=== PATIENT | male | born 1985 | race Caucasian/White ===

== ENCOUNTER 2017-02-05 22:33 | Emergency (ER) | payer BC ==
[2017-02-06] MEDS ORDERED: LIDOCAINE 1% 10 ML VIAL INJ ONE (00:32)
--- NOTE | 2017-02-06 00:36 | ED.PDOC ---
History of Present Illness - General Chief Complaint: Laceration Stated Complaint: eye laceration Time Seen by Provider: 02/06/17 00:30 Source: patient Exam Limitations: no limitations - History of Present Illness Initial Comments: Monty Singh 31 y/o male stated got accidentally struck by the metal [employer]ndricks at the [facility] [employer] tonight sustaining laceration just above the right eye brow denies being struck on the eyeball.No blurry vision,no loc Timing/Duration: just prior to arrival Severity: mild Location: face Worsening Factors: nothing Associated Symptoms: denies symptoms Allergies/Adverse Reactions: Allergies NO KNOWN ALLERGY Allergy (Verified 07/15/13 12:58) Home Medications: Ambulatory Orders Tramadol HCl 50 mg PO Q6HRS #20 tab 10/29/14 Review of Systems - Review of Systems Constitutional: States: no symptoms reported EENTM: States: no symptoms reported Respiratory: States: no symptoms reported Cardiology: States: no symptoms reported Gastrointestinal/Abdominal: States: no symptoms reported Genitourinary: States: no symptoms reported Musculoskeletal: States: no symptoms reported Skin: States: see HPI Past Medical History (General) - Patient Medical History Hx Asthma: No Hx of COPD: No Hx Congestive Heart Failure: No Hx Pacemaker: No Hx Hypertension: No Surgical History: other - Vaccination History Hx Tetanus, Diphtheria Vaccination: No Hx Influenza Vaccination: No Hx Pneumococcal Vaccination: No - Social History Hx Tobacco Use: Yes Hx Alcohol Use: Yes Hx Substance Use: No Hx Substance Use Treatment: No Hx Depression: No - Female History Patient : No Family Medical History - Family History Mother Family History: No Known Living Status: Still Living Physical Exam - Physical Exam General Appearance: Alert, Comfortable, No apparent distress Eyes, Ears, Nose, Throat Exam: PERRL/EOMI, normal ENT inspection, TMs normal, pharynx normal Neck: non-tender, full range of motion, supple Cardiovascular/Chest: normal peripheral pulses, regular rate, rhythm, no murmur Respiratory: chest non-tender, lungs clear, no respiratory distress Gastrointestinal/Abdominal: normal bowel sounds, non tender, soft Back Exam: normal inspection Extremity: normal range of motion, non-tender Neurologic: alert, normal mood/affect, oriented x 3 Skin Exam: warm/dry, normal color Skin Problem Location: face Skin Character: other - laceration Procedures - Laceration/Wound Repair Face Wound Length (cm): 2 - right eyebrow Wound's Depth, Shape: superficial, linear Wound Explored: no foreign body removed Wound Repaired With: dermabond Sterile Dressing Applied?: Yes - reinforced with steri strip Departure - Departure Clinical Impression: Laceration of face without complication Qualifiers: Encounter type: initial encounter Qualified Code(s): S01.81XA - Laceration without foreign body of other part of head, initial encounter Time of Disposition: 01:01 Disposition: Discharge to Home or Self Care Condition: Good Departure Forms: ED Discharge - Pt. Copy, Patient Portal Self Enrollment Instructions: DI for Laceration Repair With Dermabond Referrals: Domenica Vasquez NP [Primary Care Provider] - 1-2 Weeks Home Medications: Ambulatory Orders Tramadol HCl 50 mg PO Q6HRS #20 tab 10/29/14 Additional Instructions: Removal of steri strips in 7 days by patient;Aleve (otc) 1-2 tablets by mouth am / pm prn for pain
[2017-02-06] MEDS ORDERED: TETANUS,DIPHTHERIA,PERTUSSIS 1 EA SYG IM ONE (01:02)
[2017-02-06] MEDS ORDERED: IBUPROFEN 200 MG TAB PO ONE (01:03)
[2017-02-06 01:14] VITALS: BP 118/59; TEMP 97.9; O2SAT 97
== END 2017-02-06 01:13 | disposition home or self-care (01) ==
LOC: ER 22:33
DX: S01.111A Laceration without foreign body of right eyelid and periocular area, initial encounter (principal); Z23 Encounter for immunization; W22.8XXA Striking against or struck by other objects, initial encounter; Y92.59 Other trade areas as the place of occurrence of the external cause

== ENCOUNTER 2017-05-05 08:34 | Emergency (ER) | payer BC ==
[2017-05-05 08:47] VITALS: TEMP 98
--- NOTE | 2017-05-05 09:06 | ED.PDOC ---
History of Present Illness - General Chief Complaint: Trauma Stated Complaint: Hit by bull on Wednesday Time Seen by Provider: 05/05/17 09:03 Source: patient, RN notes reviewed, Vital Signs reviewed Exam Limitations: no limitations - History of Present Illness Initial Comments: Patient comes in with c/o of right rib/chest wall pain. 2 days ago he was moving a bull to be sold and reports it ran into his right side 5 times. Since then he is having progressively worsening R sided chest wall pain. Concerned it may be more than a bruised rib. Denies other injuries. No abdominal pain. Difficulty breathing due to the pain. Occurred: other - 2 days ago Severity: moderate Pain Location: chest Method of Injury: direct blow Improving Factors: rest Worsening Factors: movement, other - deep breathing, coughing Loss of Consciousness: no loss of consciousness Associated Symptoms (Fall): chest pain, shortness of breath - due to pain Allergies/Adverse Reactions: Allergies Penicillins Allergy (Verified 05/05/17 08:47) Home Medications: Ambulatory Orders Acetamin W/Cod #3 Tab [Tylenol w/CODEINE #3] 1 ea PO Q4HR PRN #15 tab 05/05/17 Review of Systems - Review of Systems Constitutional: States: no symptoms reported EENTM: States: no symptoms reported Respiratory: States: see HPI, short of breath - due to pain with breathing Cardiology: States: see HPI, chest pain - chest wall pain on R Gastrointestinal/Abdominal: States: no symptoms reported, nausea. Denies: abdominal pain, vomiting Musculoskeletal: States: see HPI Skin: States: no symptoms reported Neurological: States: no symptoms reported All other Systems: No Change from Baseline Past Medical History (General) - Patient Medical History Hx Asthma: No Hx of COPD: No Hx Congestive Heart Failure: No Hx Pacemaker: No Hx Hypertension: No Surgical History: other - Vaccination History Hx Tetanus, Diphtheria Vaccination: No Hx Influenza Vaccination: No Hx Pneumococcal Vaccination: No - Social History Hx Tobacco Use: Yes Hx Alcohol Use: No Hx Substance Use: No Hx Substance Use Treatment: No Hx Depression: No - Female History Patient : No Family Medical History - Family History Mother Family History: No Known Living Status: Still Living Physical Exam - Physical Exam General Appearance: Alert, Well Developed, Well Groomed, Well Hydrated, Well Nourished, Other - In obvious pain Head Injury: no evidence of injury Neck Exam: full range of motion, normal alignment, normal inspection Cardiovascular/Respiratory: regular rate, rhythm, no M/R/G, no respiratory distress, wheezing - bilateral bases, other - Decreased inspiratory effort due to pain. Chest wall is tender to palpation over R anterior chest and R side lower ribs. Gastrointestinal/Abdominal: non tender, soft Back Exam: normal inspection, no CVA tenderness, no vertebral tenderness Extremity Exam: no evidence of injury Neurologic: no motor/sensory deficits, alert, normal mood/affect, oriented x 3 Skin Exam: normal color, warm/dry Comments: Vital Signs 05/05/17 08:35 Temperature 98.0 F Pulse Rate [ 89 pulse ox] Respiratory 20 Rate Blood Pressure 138/93 [Left Arm] O2 Sat by Pulse 100 Oximetry Progress - EKG/XRAY/CT XRAY: Ribs: no fracture per Radiologist. - Normal per Radiologist Departure - Departure Clinical Impression: Chest wall contusion Qualifiers: Encounter type: initial encounter Laterality: right Qualified Code(s): S20.211A - Contusion of right front wall of thorax, initial encounter Time of Disposition: :31 Disposition: Discharge to Home or Self Care Condition: Good Departure Forms: ED Discharge - Pt. Copy, Patient Portal Self Enrollment Instructions: DI for Rib Contusion Diet: resume usual diet Activity: increase activity as tolerated Referrals: Domenica Vasquez NP [Primary Care Provider] - 1-2 Weeks Prescriptions: Acetamin W/Cod #3 Tab [Tylenol w/CODEINE #3] 1 ea PO Q4HR PRN #15 tab PRN Reason: Moderate To Severe Pain Home Medications: Ambulatory Orders Acetamin W/Cod #3 Tab [Tylenol w/CODEINE #3] 1 ea PO Q4HR PRN #15 tab 05/05/17 Additional Instructions: Take 10 deep breaths every hour - use pillow to splint chest
--- NOTE | 2017-05-05 09:23 | RAD ---
EXAM DESCRIPTION: Chest,2 Views CLINICAL HISTORY: Hit by bull 2 days ago COMPARISON: July 15, 2013 TECHNIQUE: PA/lateral FINDINGS: There is no cardiac or pulmonary abnormality. The lungs are clear. There is no effusion. IMPRESSION: 1. Normal two-view chest. Electronically signed by: Felipe Dexter MD 05/05/2017 9:22 AM CDT
--- NOTE | 2017-05-05 09:24 | RAD ---
EXAM DESCRIPTION: Ribs,Right 3 Views CLINICAL HISTORY: 31 years Male, Hit by bull 2 days ago COMPARISON: None. FINDINGS: 3 views of the right ribs show no fracture or other rib abnormality. IMPRESSION: Negative Electronically signed by: Felipe Dexter MD 05/05/2017 9:22 AM CDT
[2017-05-05] MEDS ORDERED: KETOROLAC TROMETHAMINE INJ 60 MG/2 ML VIAL IM ONE (09:30)
[2017-05-05 09:48] VITALS: BP 126/82; O2SAT 97
== END 2017-05-05 09:53 | disposition home or self-care (01) ==
LOC: ER 08:34
DX: S20.211A Contusion of right front wall of thorax, initial encounter (principal); Z88.0 Allergy status to penicillin; Z87.891 Personal history of nicotine dependence; W55.22XA Struck by cow, initial encounter; Y92.9 Unspecified place or not applicable
CPT/HCPCS: 71020; 71101; J1885